=== PATIENT | male | born 1985 | race Caucasian/White ===

== ENCOUNTER 2019-09-30 23:08 | Emergency (ER) | payer OTHER ==
[~2019-09-30] VITALS: Ht 172.7 cm; Wt 88.9 kg
[2019-09-30] MEDS ORDERED: REMERON30 M1 PO (23:19)
[2019-09-30] MEDS ORDERED: CELEXA 10 MG TA10 M1 PO (23:19)
[2019-09-30] MEDS ORDERED: HYDROCODON-ACE1 EAC7 PO (23:26)
[2019-09-30] MEDS ORDERED: SILVADENE20 GM TOP (23:26)
[2019-09-30] MEDS ORDERED: KEFLEX500 M1 PO (23:26)
[2019-10-01 00:04] VITALS: BP 148/97
== END 2019-10-01 00:04 | disposition home or self-care (01) ==
LOC: M.ERS 23:08
DX: T23.232A Burn of second degree of multiple left fingers (nail), not including thumb, initial encounter (principal); F17.200 Nicotine dependence, unspecified, uncomplicated; F32.9 Major depressive disorder, single episode, unspecified; F41.9 Anxiety disorder, unspecified; X00.0XXA Exposure to flames in uncontrolled fire in building or structure, initial encounter; Y92.89 Other specified places as the place of occurrence of the external cause; Y93.89 Activity, other specified; Y99.8 Other external cause status

== ENCOUNTER 2020-05-01 19:20 | Emergency (ER) | payer OTHER ==
[~2020-05-01] VITALS: Ht 172.7 cm; Wt 72.6 kg
[~2020-05-01 19:20] MED LIST: CELEXA 10 MG TA10 M1 PO; HYDROCODON-ACE1 EAC7 PO; KEFLEX500 M1 PO; REMERON30 M1 PO; SILVADENE20 GM TOP
[2020-05-01] MEDS ORDERED: APAP W/CODEINE1 TA2 PO (20:06)
[2020-05-01] MEDS ORDERED: LIDOCAINE VISC100 ML SWISH&SPIT (20:06)
[2020-05-01] MEDS ORDERED: AMOXICILLIN 50500 MG PO (20:06)
[2020-05-01 20:20] VITALS: BP 118/85
== END 2020-05-01 20:21 | disposition home or self-care (01) ==
LOC: M.ERS 19:20
DX: K04.7 Periapical abscess without sinus (principal); K02.9 Dental caries, unspecified; K03.81 Cracked tooth; F17.210 Nicotine dependence, cigarettes, uncomplicated; Z91.041 Radiographic dye allergy status

== ENCOUNTER 2020-08-26 20:31 | Emergency (ER) | payer OTHER ==
[~2020-08-26] VITALS: Ht 172.7 cm; Wt 74.8 kg
[~2020-08-26 20:31] MED LIST changes: +AMOXICILLIN 50500 MG PO; +APAP W/CODEINE1 TA2 PO; +LIDOCAINE VISC100 ML SWISH&SPIT
[2020-08-26] MEDS ORDERED: CELEXA 20 MG TA20 MG PO (20:42)
[2020-08-26] MEDS ORDERED: ZYPREXA20 MG PO (20:42)
[2020-08-26] MEDS ORDERED: DESYREL150 MG PO (20:42)
[2020-08-26 21:21] VITALS: BP 141/101
== END 2020-08-26 21:22 | disposition home or self-care (01) ==
LOC: M.ERS 20:31
DX: J02.9 Acute pharyngitis, unspecified (principal); Z79.899 Other long term (current) drug therapy; Z88.8 Allergy status to other drugs, medicaments and biological substances; Z20.828 Contact with and (suspected) exposure to other viral communicable diseases

== ENCOUNTER 2021-04-18 21:36 | Emergency (ER) | payer OTHER ==
[~2021-04-18] VITALS: Ht 177.8 cm; Wt 90.7 kg
[~2021-04-18 21:36] MED LIST changes: +CELEXA 20 MG TA20 MG PO; +DESYREL150 MG PO; +ZYPREXA20 MG PO
[2021-04-19 01:55] VITALS: BP 141/100
== END 2021-04-19 01:55 | disposition home or self-care (01) ==
LOC: M.ERS 21:36
DX: Z20.822 Contact with and (suspected) exposure to COVID-19 (principal); F41.9 Anxiety disorder, unspecified; F31.9 Bipolar disorder, unspecified; Z91.041 Radiographic dye allergy status

== ENCOUNTER 2021-08-30 19:42 | Emergency (ER) | payer OTHER ==
[~2021-08-30] VITALS: Ht 172.7 cm; Wt 90.7 kg
[2021-08-30 20:11] LABS: URINE BILIRUBIN NEGATIVE (Negative); URINE BLOOD NEGATIVE (Negative); URINE CLARITY CLEAR; URINE COLOR YELLOW; URINE GLUCOSE-RANDOM NEGATIVE (Negative); URINE KETONES NEGATIVE (Negative); URINE LEUKOCYTES NEGATIVE (Negative); URINE NITRITE NEGATIVE (Negative); URINE PROTEIN NEGATIVE (Negative); URINE SPECIFIC GRAVITY >= 1.030 (1.005-1.030); URINE UROBILINOGEN 0.2 E.U./dl (0.2-1.0)
[2021-08-30 20:32] LABS: AMP/METHAMP POSITIVE (Negative); BARBITURATES Negative (Negative); BENZODIAZEPINES Negative (Negative); COCAINE Negative (Negative); METHADONE Negative (Negative); OPIATES Negative (Negative); PCP Negative (Negative); THC POSITIVE (Negative)
[2021-08-30 20:51] LABS: ABSOLUTE BASOPHILS 0.1 thou/uL (0.0-0.2); ABSOLUTE EOSINOPHILS 0.1 thou/uL (0.0-0.7); ABSOLUTE LYMPHOCYTES 2.3 thou/uL (0.8-5.3); ABSOLUTE MONOCYTES 1.3 thou/uL (0.0-1.2); EOSINOPHILS 1.6 %; HEMATOCRIT 44.9 % (42.0-52.0); HEMOGLOBIN 15.7 gm/dL (14.0-18.0); LYMPHOCYTES 26.4 %; MCH 32.2 pg (26.0-34.0); MCHC 34.9 g/dL (28.0-37.0); MCV 92.3 fL (80.0-100.0); MONOCYTES 14.7 %; MPV 7.2 fl. (7.2-11.1); NUCLEATED RBCS 0 /100WBC; PLATELET COUNT* 333 thou/uL (150-400); POLYS 56.3 %; RBC 4.87 mil/uL (4.50-6.00); RDW-CV 13.3 % (10.5-14.5); WBC 8.8 thou/uL (4.0-11.0)
[2021-08-30 20:59] LABS: CALCIUM 8.1 mg/dL (8.5-10.1); CREATININE 1.2 mg/dL (0.6-1.3); POTASSIUM 3.2 mmol/L (3.5-5.1)
[2021-08-30 21:03] LABS: ALBUMIN 3.9 g/dL (3.4-5.0); TOTAL BILIRUBIN 0.6 mg/dL (<0.1-1.0); TOTAL PROTEIN 7.5 g/dL (6.4-8.2)
[2021-08-30 22:35] VITALS: BP 130/80
--- NOTE | 2021-08-31 12:22 | EKG ---
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
== END 2021-08-30 22:35 | disposition home or self-care (01) ==
LOC: M.ERS 19:42
PROVIDERS: Student in an Organized Health Care Education/Training Program
DX: M79.10 Myalgia, unspecified site (principal); E87.6 Hypokalemia; F41.9 Anxiety disorder, unspecified; Z91.02 Food additives allergy status